=== PATIENT | male | born 1950 | race Asian ===

== ENCOUNTER 2023-06-20 09:06 | Emergency (ER) | payer MEDICAID, SELFPAY ==
[2023-06-20 09:18] VITALS: BP 170/78
--- NOTE | 2023-06-20 11:54 | ED.GENMED ---
History of Present Illness
General
Chief Complaint: Musculo-Skeletal Complaint
Source: patient and family
Exam Limitations: none
Time Seen by Provider: 06/20/23 11:11
Nursing documentation reviewed up to this point in time: agreed with
Travel History
Have you had any contact with someone who has COVID-19?: No
Do you have any symptoms of coronavirus? Fever > 100 degrees, chills, cough, shortness of breath, sore throat, loss of taste or smell, muscle aches, or headache?: No
History of Present Illness
History of Present Illness:
73-year-old male presents to the ER for evaluation. Family at bedside reports patient was walking yesterday doing exercising and felt that he may have twisted his right leg. It did not hurt him initially and so he continued to walk however pain
started to increase at the time and has been persistent. He does feel pain mostly at rest. He describes pain down his right lateral thigh. At times he feels a little soreness in his lower leg. He denies any swelling redness fever chills. He has
taken Tylenol but still has pain.
No chest pain shortness of breath fever chills. He denies any prior history of DVT.
Review of Systems
Review of Systems
Allergies reviewed?: Yes
All Other Systems: ROS reviewed and negative except as documented in HPI and ROS
Constitutional: Reports no symptoms; Denies fever, fatigue or chills
Respiratory: Reports no symptoms
Cardiac: Reports no symptoms
ABD/GI: Reports no symptoms
Musculoskeletal: Reports other (right thigh pain )
Skin: Reports no symptoms
Neurological: Reports no symptoms
Psychiatric: Reports no symptoms
Phy Exam
General Physical Exam
General Presentation: no apparent distress
General age: appears stated age
General Skin: warm and dry
General Habitus: normal
General Mental: alert
General Hydration: appears well hydrated
Neurological Exam
Neurological Exam: alert and oriented x3
Musculoskeletal Exam
Musculoskeletal Exam: full ROM and other (Strong distal pulses full flexion extension normal internal/external rotation no pain on exam, no swelling to thigh patient has small area of redness that he reports was from heating pad, nontender to
palpation)
Skin Exam
Skin Exam: normal color and warm/dry
Course
Orders/Labs/Results
Orders:
Orders
06/20/23 11:53
Femur, Right 2 View [CR Femur - Right Min 2 Vw] Urgent
Comment:
Reason For Exam: pain
Hip, Right 2-3 Views [CR Hip - RT w/wo Pel 2-3 Vw*] Urgent
Comment:
Reason For Exam: pain
Include a pelvis x-ray?: Yes
Venous Doppler Lwr Ext Rt [US Periph Venous LOWER Ext RT] Urgent
Comment:
Reason For Exam: pain right leg
Vital Signs
Initial and Last Documented VS:
Initial Vital Signs
Temp Pulse Resp BP Pulse Ox
97.3 F 65 18 170/78 100
06/20/23 09:18 06/20/23 09:18 06/20/23 09:18 06/20/23 09:18 06/20/23 09:18
Last Documented Vital Signs
Temp Pulse Resp BP Pulse Ox
97.3 F 65 18 170/78 100
06/20/23 09:18 06/20/23 09:18 06/20/23 09:18 06/20/23 09:18 06/20/23 09:18
MDM/Problems Addressed
Differential Diagnosis Includes:
Not limited to sprain strain fracture DVT sciatica
MDM/Problems Addressed:
Patient is a 71-year-old male who was walking yesterday and felt a pull/strain in his right leg. He was able to continue walking but then has had pain since. On exam he has no obvious swelling. His ultrasound and x-rays are unremarkable. He
denies any actual back pain. He has good range of motion of leg normal distal pulses and no concerning findings on exam. He Does have a small area of redness that he noticed after using the heating pad. There is no induration or fluctuance on
exam. Patient denies any fevers and is afebrile here. Will treat as muscular pain with ibuprofen. Family bedside reports they thought patient was not able to take Tylenol however unsure why. Patient is no prior labs here in the ER. They report
he is allowed to take ibuprofen. Will DC with ibuprofen every 8 hours however I did review with family and patient close outpatient follow-up family doctor. I do not believe this is sciatica at this time however if no improvement will need
reevaluation. He is also to return if any worsening of symptoms
*Radiology
Radiology exam reviewed: radiology read reviewed
*Pulse Oximetry
Patient hypoxic: no
*Critical Care Note
Total Time (30-74mins, 75-104mins- exclusive of procedures): Not Applicable
ED Attending Note
-
Portions of this chart may have been created with voice recognition software.� Occasional wrong word or��sound alike� substitutions may have occurred due to the inherent limitations of voice recognition software.
Discharge Plan
Departure
Patient Disposition: Home (Routine Discharge)
Date of Disposition: 06/20/23
Time of Disposition: 13:48
Patient with high blood pressure during this ER visit?: Yes
Condition: Fair
Covid-19: Not Applicable
Discharge Problem:
Acute thigh pain
Instructions: Muscle and Bone Pain (DC), BLOOD PRESSURE
Prescriptions:
No Action
No Current Medications
0
Referrals:
Lonnie Ulloa MD [Family Provider] -
Activity Restrictions/Additional Instructions:
Ibuprofen 400 mg every 8 hours with food. Ice the affected area for the first 24 hours several times a day followed by warm moist heat. Follow-up however with family doctor in the next 2 days for reevaluation return if any worsening of symptoms
or increased pain swelling redness fever chills or any further concerns.
Interventions
Interventions:
*Risk Screen - Suicide Last Done: 06/20/23 09:18
*General Assessment Last Done: 06/20/23 11:28
*Neglect/Abuse Screening Last Done: 06/20/23 09:18
ED- Fall Risk Assessment Last Done: 06/20/23 11:28
*ED COVID-19 Vaccine History Last Done: 06/20/23 09:18
ED-Musculoskeletal Assessment Last Done: 06/20/23 11:28
== END 2023-06-20 14:03 | disposition home or self-care (01) ==
LOC: EMR 09:06
PROVIDERS: EMERGENCY PHYSICIAN Emergency Medicine; FAMILY PHYSICIAN Family Medicine
DX: M79.651 Pain in right thigh (principal); X50.0XXA Overexertion from strenuous movement or load, initial encounter; R03.0 Elevated blood-pressure reading, without diagnosis of hypertension
CPT/HCPCS: 99285; 73502; 73552; 93971

== ENCOUNTER → 2025-02-13 09:09 | Outpatient (REF) | payer OTHER, MEDICAID, SELFPAY | LOC: HWRAD 09:09 | PROVIDERS: ATTENDING PHYSICIAN Nurse Practitioner Family | DX: R74.8 Abnormal levels of other serum enzymes (principal) | CPT/HCPCS: 76700 ==